=== PATIENT | female | born 1945 | race Caucasian/White ===

== ENCOUNTER 2025-02-27 12:52 | Emergency (ER) | payer MEDICARE, SELFPAY ==
[2025-02-27] VITALS (14 sets, daily range): BP systolic 148–153; BP diastolic 70–77; PULSE 75–86; RESP 10–21; TEMP 36.9; O2SAT 96–99
[2025-02-27] MEDS: MECLIZINE HCL 25 MG TABLET PO (15:33)
[2025-02-27] MEDS: SODIUM CHLORIDE 0.9% IV 1,000 ML 999 ML IV CONT (15:33)
[2025-02-27 15:39] LABS: Hematocrit 43.5 % (37.0-47.0); Hemoglobin 14.5 g/dL (12.0-15.0); Immature Granulocyte Percent A 0.5 % (0-0.5); Lymphocytes Absolute Auto 1.82 K/mm3 (0.9-3.2); Mean Corpuscular HGB Conc 33.3 g/dl (32-36); Mean Corpuscular Hemoglobin 30.1 pg (26-34); Mean Corpuscular Volume 90.2 fl (80-100); Nucleated Red Blood Cells Absolute Auto 0.000 K/mm3 (0.0-0.012); Nucleated Red Blood Cells Perc 0.0 % (0.0-0.2); Platelet Count Result 309 k/mm3 (150-375); Red Blood Count 4.82 M/mm3 (4.2-5.4); White Blood Count 8.7 K/mm3 (4.5-10.0)
--- NOTE | 2025-02-27 15:43 | ED_ITS ---
HPI - General Adult General Chief complaint: Dizziness Stated complaint: dizzy spells Time Seen by Provider: 02/27/25 14:56 History of Present Illness HPI narrative: Patient is a 79-year-old female who presents ER with dizziness. Woke up and was turning to the right to get the toilet paper and felt very dizzy. No nausea or sweats. She felt lightheaded yesterday but this is markedly more intense. It then reoccurred when she was in child pose on her yoga mat. Symptoms are reproducible. No extremity numbness or weakness. No slurred speech. Related Data Allergies Allergy/AdvReac Type Severity Reaction Status Date / Time Penicillins Allergy Severe Anaphylaxis Verified 02/27/25 13:01 azithromycin Allergy Unknown Rash Verified 02/27/25 13:01 Review of Systems 2 Review of Systems: All systems reviewed & are unremarkable except as noted in HPI and below Constitutional: Constitutional: Reports no additional constitutional complaints ENT: Reports system reviewed and no additional complaints, except as documented Cardiovascular: Cardiovascular: Reports no additional cardiovascular complaints Respiratory: Respiratory: Reports no additional respiratory complaints Neurologic: Reports system reviewed and no additional complaints, except as documented PMFSH Past Medical History Medical History (Updated 02/27/25 @ 17:26 by Talon Foster MD) Healthy female adult Exam 2 Narrative: GENERAL: Well-appearing, well-nourished, and in no acute distress. HEAD: Normocephalic, atraumatic. EYES: PERRL and EOMI. Right gaze nystagmus ENT: Mucous membranes moist. TMs normal bilaterally. CHEST: Clear to auscultation. No respiratory distress. HEART: Regular rate and rhythm. Normal peripheral pulses. EXTREMITIES: Normal range of motion. No edema. SKIN: Warm, dry, no rash. NEURO: Alert and oriented x3. PSYCH: Normal mood and affect. Course Vital Signs Vital signs: Vital Signs Temperature 98.4 F 02/27/25 12:55 Pulse Rate 81 02/27/25 12:55 Respiratory Rate 19 02/27/25 12:55 Blood Pressure 153/70 H 02/27/25 12:55 Pulse Oximetry 99 02/27/25 12:55 Oxygen Delivery Room Air 02/27/25 12:55 Temperature 98.4 F 02/27/25 12:55 Pulse Rate 81 02/27/25 12:55 Respiratory Rate 19 02/27/25 12:55 Blood Pressure 153/70 H 02/27/25 12:55 Pulse Oximetry 99 02/27/25 12:55 Oxygen Delivery Room Air 02/27/25 12:55 Medical Decision Making Vital Signs Vital Signs: Vital Signs Temperature 98.4 F 02/27/25 12:55 Pulse Rate 81 02/27/25 12:55 Respiratory Rate 19 02/27/25 12:55 Blood Pressure 153/70 H 02/27/25 12:55 Pulse Oximetry 99 02/27/25 12:55 Oxygen Delivery Room Air 02/27/25 12:55 Temperature 98.4 F 02/27/25 12:55 Pulse Rate 81 02/27/25 12:55 Respiratory Rate 19 02/27/25 12:55 Blood Pressure 153/70 H 02/27/25 12:55 Pulse Oximetry 99 02/27/25 12:55 Oxygen Delivery Room Air 02/27/25 12:55 Lab Data 02/27/25 15:34 02/27/25 15:34 Labs: Lab Results 02/27/25 02/27/25 Range/Units 15:34 15:53 WBC 8.7 (4.5-10.0) K/mm3 RBC 4.82 (4.2-5.4) M/mm3 Hgb 14.5 (12.0-15.0) g/dL Hct 43.5 (37.0-47.0) % MCV 90.2 (80-100) fl MCH 30.1 (26-34) pg MCHC 33.3 (32-36) g/dl RDW 12.7 (11.5-14.5) % Plt Count 309 (150-375) k/mm3 MPV 10.4 (7.4-10.4) fl Immature Gran % (Auto) 0.5 (0-0.5) % Neut % (Auto) 67.7 (45.5-73.1) % Lymph % (Auto) 21.0 (18.3-44.2) % [place] % (Auto) 7.5 (2.6-8.5) % Eos % (Auto) 2.3 (0-4.4) % Baso % (Auto) 1.0 (0.2-1.2) % Lymph # (Auto) 1.82 (0.9-3.2) K/mm3 [place] # (Auto) 0.7 H (0.1-0.6) K/mm3 Eos # (Auto) 0.2 (0-0.3) K/mm3 Baso # (Auto) 0.1 (0.0-0.1) K/mm3 Abs Immat Gran (auto) 0.04 H (0.00-0.031) K/mm3 Absolute Neuts (auto) 5.9 (1.3-6.7) K/mm3 Absolute Nucleated RBC 0.000 (0.0-0.012) K/mm3 Nucleated RBC % 0.0 (0.0-0.2) % Sodium 139 (137-145) mmol/L Potassium 4.1 (3.4-5.0) mmol/L Chloride 105 (98-107) mmol/L Carbon Dioxide 26 (22-30) mmol/L Anion Gap 8 (4-12) mmol/L BUN 10 (7-17) mg/dL Creatinine 0.84 (0.7-1.0) mg/dL Estim Creat Clear Calc 39 ml/min Estimated GFR > 60 (59 - ) Glucose 108 (65-110) mg/dL Calcium 9.1 (8.4-10.2) mg/dL Total Bilirubin 0.4 (0.2-1.3) mg/dL AST 34 (14-36) U/L ALT 27 (6-35) U/L Alkaline Phosphatase 77 (38-126) U/L Total Protein 7.2 (6.3-8.2) g/dL Albumin 4.4 (3.5-5.1) g/dL Urine Color Yellow (Yellow) Urine Appearance Clear (Clear) Urine pH 6.0 (5.0-9.0) Ur Specific [place] 1.005 (1.001-1.035) Urine Protein Negative (Negative) mg/dL Urine Glucose (UA) Negative (Negative) mg/dL Urine Ketones Negative (Negative) mg/dL Ur Blood (Man) Negative (Negative) Urine Nitrate Negative (Negative) Urine Bilirubin Negative (Negative) Urine Urobilinogen 0.2 (<2.0) mg/dL Leukocyte Esterase Rfl Negative (Negative) MYRON/UL Discharge Plan Discharge Clinical Impression: Vertigo Patient Disposition: Home Condition: Stable Instructions: Vertigo (ED) Additional Instructions: Return the ER if you have worsening dizziness, he cannot keep down food water, you develop weakness in arm or leg, or you have additional concerns. Patient Language: [place] Prescriptions: New meclizine 25 mg tablet 25 mg PO TID Qty: 20 0RF Follow-up/Referrals: LORENA,LUCAS [Other] - 1 Week
[2025-02-27 15:55] LABS: Alanine Aminotransferase 27 U/L (6-35); Albumin Level 4.4 g/dL (3.5-5.1); Alkaline Phosphatase 77 U/L (38-126); Anion Gap 8 mmol/L (4-12); Aspartate Amino Transferase 34 U/L (14-36); Bilirubin,Total 0.4 mg/dL (0.2-1.3); Blood Urea Nitrogen 10 mg/dL (7-17); Calcium 9.1 mg/dL (8.4-10.2); Carbon Dioxide 26 mmol/L (22-30); Chloride 105 mmol/L (98-107); Estimated CRCL calculation 39 ml/min; Estimated Glomerular Filt Rate > 60; Glucose 108 mg/dL (65-110); Potassium 4.1 mmol/L (3.4-5.0); Sodium 139 mmol/L (137-145); Total Protein 7.2 g/dL (6.3-8.2)
[2025-02-27 16:00] LABS: Add Urine Microscopic? NO; Appearance Urine Clear (Clear); Glucose Urine UA Negative (Negative); Leukocyte Esterase Ur Negative LEU/UL (Negative); Nitrate Urine Negative (Negative); Specific Grav Ur 1.005 (1.001-1.035)
== END 2025-02-27 17:37 | disposition home or self-care (01) ==
PROVIDERS: Emergency Provider Emergency Medicine
DX: R42 Dizziness and giddiness (principal)
CPT/HCPCS: 36415; 80053; 81003; 85025; 96360; 99283; A9270; J7030